=== PATIENT | female | born 1995 | race Caucasian/White ===

== ENCOUNTER 2017-10-11 17:57 | Emergency (ER) | payer OTHER, SELFPAY ==
[2017-10-11 17:58] VITALS: BP 135/71; PULSE 106; RESP 18; TEMP 36.1; O2SAT 100; BMI 18.7
[2017-10-11 19:42] LABS: Mucous, Urine 0 SEEN /hpf (<or=2+)
[2017-10-11 19:44] LABS: Color, Urine Yellow (Yellow); Glucose, Dipstick Normal (Normal); Ketone-Dipstick Negative (Negative); Leukocyte Esterase-Dipstick 500 /ul (Negative); Nitrite-Dipstick Positive (Negative); Occult Blood-Urine 250 /ul (Negative); Protein-Dipstick 100 mg/dl (Negative); Specific Gravity, Urine 1.015 (1.002-1.030); Urine Bilirubin Dipstick Negative (Negative); Urine Clarity Sl. Cloudy (Clear); Urine Urobilinogen Normal (Normal)
[2017-10-11 19:51] LABS: White Blood Cells 50-100 SEEN /hpf (0-5)
[2017-10-11 19:53] LABS: Bacteria 1+ /hpf (None Seen); Red Blood Cells-Urine 25-50 SEEN /hpf (0-5); Squamous Epithelial Cells - UA 0-5 SEEN /hpf (5-10)
--- NOTE | 2017-10-11 19:58 | ED.VISSUMM ---
- ER Visit Summary Date of Service: 10/11/17 Chief Complaint: [Dysuria] History of Present Illness: The patient is a 22 F [patient describes some lower abdominal pressure. Patient does not believe that she is she had an IUD placed September 23. Patient's last menstrual period was on September 19.] presents to the emergency department with complaint of dysuria, frequency, and urgency. Patient states her symptoms started about 5 or 6 days ago. Patient denies any fever or vomiting. Physical Examination: [HEENT-PERRLA, EOMI. Cranial nerves II through XII grossly intact. TMs clear. Mucous membranes moist. No adenopathy. Cardiovascular-regular rate and rhythm without murmur or ectopy Lungs-clear to auscultation, chest wall stable without crepitus or subcu emphysema Abdomen-normoactive bowel sounds, soft, nontender, no rebound or rigidity, no peritoneal signs. Extremities-intact ?4, normal range of motion, normal pulses, atraumatic] Test Results: [Urinalysis positive for nitrites, leukocyte esterase, 50-100 WBCs, 25-50 RBCs, and +1 bacteria. Serum hCG pending ordered by nursing staff.] Emergency Department Course and Treatment: [She was started on Cipro and will be given a prescription for Pyridium as well given that patient claiming sulfa allergy.] Treatment Plan: [And will be treated with Cipro and Pyridium and advised to follow-up with primary care physician within the next 5-7 days.] Disposition: [Discharged to home in stable condition. Patient advised to return if fever, vomiting, severe abdomen or back pain, or condition should worsen in any way.] Impression: [Urinary tract infection] This note was generated with [employer] dictation software. It may contain incorrect words, spelling, and punctuation that were not noted in review of the chart prior to signing ED Disposition - Plan for ED Patient: Chief Complaint: Complaint Referrals: Carmelita Vargas MD [Primary Care Provider] -
--- NOTE | 2017-10-11 20:00 | ED.DEP ---
ED Disposition - Plan for ED Patient: Chief Complaint: Complaint Instructions: ED UTI Cystitis Female Prescriptions: Phenazopyridine HCl [Pyridium] 200 mg PO BID PRN PRN #10 tab PRN Reason: Pain Ciprofloxacin [Cipro] 500 mg PO BID #14 tab Referrals: Carmelita Vargas MD [Primary Care Provider] - 5-7 Days
[2017-10-11 20:20] LABS: Pregnancy, Serum, hCG Quali. NEGATIVE Negative (0-9 Nonpreg)
[2017-10-11] MEDS: Ciprofloxacin 500 MG Tablet PO (20:31)
[2017-10-11 20:32] VITALS: PULSE 90; RESP 16; O2SAT 100
== END 2017-10-11 20:33 | disposition home or self-care (01) ==
PROVIDERS: Emergency Provider Emergency Medicine; Family Provider Pediatrics; PCP Pediatrics
DX: N39.0 Urinary tract infection, site not specified (principal); G40.909 Epilepsy, unspecified, not intractable, without status epilepticus; Z79.899 Other long term (current) drug therapy
CPT/HCPCS: 36415; 81001; 84703; 87086; 87088; 87186; 99283

== ENCOUNTER → 2017-12-03 08:25 | Outpatient (CLI) | payer OTHER, SELFPAY ==
--- NOTE | 2017-12-03 08:25 | DT_ITS ---
This patient was seen during an EMR downtime November 29, 2017 - December 06, 2017. This patient may have a combination of paper and electronic documentation or all paper documentation. All documentation is viewable within the e-chart portion of [facility] for each patient visit.
[2017-12-03 12:15] LABS: Basophil% 0.4 % (0-1); Eosinophils% 1.6 % (0-5); Hematocrit 4.7 % (37-47); Hemoglobin 13.4 g/dl (12.0-15.0); Lymphocyte % 24.2 % (19-41); Mean Corp Hgb Conc 32.9 g/gl (32-36); Mean Corpuscular Hgb 28.5 pg (27.0-32.0); Mean Corpuscular Volume 86.6 fL (81-99); Mean Platelet Vol. 11.7 fl (6.2-12.0); Monocyte% 9.6 % (0-10); Neutrophil % 63.8 % (47-70); POSITIVE COUNT NO; POSITIVE DIFFERENTIAL NO; POSITIVE MORPHOLOGY NO; Platelet Count 205 K/mm3 (150-450); RBC Distribution Width SD 37.7 fl (35.1-43.9)
[2017-12-03 12:16] LABS: Absolute Lymphocyte Count 1.21 X10^3/ul (0.83-4.51); Absolute Neutrophil Count 3.2 X10^3/uL (2.0-7.7); Basophil# 0.02 X10^3/uL; Eosinophil# 0.08 X10^3/uL; Lymphocyte # 1.21 X10^3/ul (4.0); Monocyte# 0.48 X10^3/uL; Neutrophil # 3.18 X10^3/uL (2.7-7.7)
[2017-12-03 14:50] LABS: ALB/GLOB Ratio 1.1 RATIO (0.9-2.4); AST(SGOT) 17 U/L (15-37); Alanine Aminotransfer ALT/SGPT 28 U/L (13-56); Albumin, Serum 3.9 g/dL (3.2-5.0); Alkaline Phosphatase 57 U/L (45-117); Anion Gap 8 (5-15); BUN 18 mg/dL (7-18); BUN/Creat Ratio 23.1 RATIO (10-20); Calcium,Total 8.4 mg/dL (8.5-10.1); Chloride 110 mmol/L (98-107); Creatinine, Serum 0.78 mg/dL (0.55-1.02); EST Glomerular Filtration Rate 98 mL/min (>60); Est Glom Filt Rate - Afr Amer 119 mL/min (>60); Globulin 3.6 g/dL (2.2-4.2); Glucose 74 mg/dL (74-106); Potassium 4.2 mmol/L (3.5-5.1); Protein, Total 7.5 g/dL (6.4-8.2); Sodium Level 144 mmol/L (136-145)
[2017-12-11 14:14] LABS: KEPPRA (LEVETIRACETAM) 45.1 ug/mL (10.0-40.0)
== END ==
PROVIDERS: Family Provider Pediatrics; PCP Pediatrics; Visit Provider Psychiatry & Neurology Neurology
DX: G40.909 Epilepsy, unspecified, not intractable, without status epilepticus (principal)
CPT/HCPCS: 36415; 80053; 80177; 82542; 85025

== ENCOUNTER → 2021-04-01 12:31 | Outpatient (CLI) | payer OTHER, SELFPAY ==
[2021-04-01 13:42] LABS: Hemoglobin 12.8 g/dL (12.0-15.0); Mean Corp Hgb Conc 32.8 g/dL (32-36); Mean Corpuscular Volume 88.2 fL (81-99); Mean Platelet Vol. 11.4 fl (6.2-12.0); Platelet Count 176 K/mm3 (150-450); RBC Distribution Width CV 12.1 % (11.6-14.6); RBC Distribution Width SD 38.9 fl (35.1-43.9); Red Blood Count 4.42 M/mm3 (4.2-5.4)
[2021-04-01 14:06] LABS: Internal QC Validated? YES +Cl - CLEAR BKGD
[2021-04-01 14:08] LABS: Pregnancy, Serum, hCG Quali. POSITIVE Negative
[2021-04-01 14:16] LABS: ALB/GLOB Ratio 1.1 RATIO (0.9-2.4); AST(SGOT) 14 U/L (15-37); Alanine Aminotransfer ALT/SGPT 20 U/L (13-56); Albumin, Serum 3.8 g/dL (3.2-5.0); Alkaline Phosphatase 36 U/L (45-117); Anion Gap 8 (5-15); BUN 9 mg/dL (7-18); BUN/Creat Ratio 17.3 RATIO (10-20); Calcium,Total 8.9 mg/dL (8.5-10.1); Chloride 102 mmol/L (98-107); Creatinine, Serum 0.52 mg/dL (0.55-1.02); EST Glomerular Filtration Rate 151 mL/min (>60); Est Glom Filt Rate - Afr Amer 183 mL/min (>60); Globulin 3.5 g/dL (2.2-4.2); Glucose 89 mg/dL (74-106); Potassium 4.1 mmol/L (3.5-5.1); Protein, Total 7.3 g/dL (6.4-8.2); Sodium Level 137 mmol/L (136-145); T4 Free Direct 0.99 ng/dL (0.76-1.46); Thyroid Stim Hormone (TSH) 0.55 uIU/mL (0.358-3.74)
[2021-04-06 23:18] LABS: KEPPRA (LEVETIRACETAM) 14.1 ug/mL (10.0-40.0)
== END ==
LOC: LAB 12:33
PROVIDERS: PCP Internal Medicine; Referring Provider Internal Medicine; Visit Provider Internal Medicine
DX: R53.83 Other fatigue (principal); G40.909 Epilepsy, unspecified, not intractable, without status epilepticus; Z79.899 Other long term (current) drug therapy
CPT/HCPCS: 36415; 80053; 80177; 82306; 84439; 84443; 84703; 85027

== ENCOUNTER → 2021-04-11 18:24 | Outpatient (CLI) | payer OTHER, SELFPAY ==
--- NOTE | 2021-04-11 18:24 | US_ITS ---
STUDY: FIRST TRIMESTER OBSTETRICAL ULTRASOUND REASON FOR EXAM: Female, 25 years old dating/viability LMP: 01/31/2021. TECHNIQUE: Transvaginal TECHNICAL QUALITY: Adequate. PRIOR ULTRASOUND: None. FINDINGS: There is visualization of a single gestational sac in a normal intrauterine position. The mean sac diameter (MSD) measures 4.81 cm, indicating an estimated gestational age (EGA) of 10 weeks, 8 days. The gestational sac shape is within normal limits. There is a visualized yolk sac. The yolk sac measures 5.4 mm. The placenta is non-visualized. There is visualization of a live embryo. The crown-rump length (CRL) measures 3.4 cm, indicating an estimated gestational age (EGA) of 9 weeks, 6 days. There is demonstrated cardiac activity with a heart rate of 177 bpm. The estimated gestation age (EGA) by LMP is 10 weeks, 0 days. The estimated date of delivery (DIOGENES) by LMP is 11/07/2021. The estimated gestation age (EGA) by US is 10 weeks, 1 days. The estimated date of delivery (DIOGENES) by US is 11/06/2021. The uterus measures 9.5 cm x 6.2 cm x 6.8 cm. There is no demonstrated uterine fibroid. The cervix is closed. The right ovary measures 3.2 cm x 3.3 cm x 3 cm.. There is no right ovarian cyst. There is no visualized right adnexal mass or complex lesion. The left ovary measures 3.6 cm x 3.7 cm x 2.5 cm. There is a 5.2 cm x 2.6 cm x 4.2 cm solid nodule in the left adnexa. There is some posterior acoustical shadowing. A dermoid cyst should be ruled out. There is no fluid in the cul de sac. US/Transvaginal w/Preg US IMPRESSION: Single live gestation with a mean gestational age of 10 weeks and 1 day. Findings suggestive of a 5.2 cm x 2.6 x 4.2 cm left adnexal dermoid. Electronically Signed: Jakub Mcmahon MD at 13:13 EDT , Service support ,
== END ==
LOC: US 18:24
PROVIDERS: PCP Internal Medicine; Visit Provider Obstetrics & Gynecology
DX: Z34.90 Encounter for supervision of normal pregnancy, unspecified, unspecified trimester (principal)
CPT/HCPCS: 76817

== ENCOUNTER → 2021-04-16 12:41 | Outpatient (CLI) | payer OTHER, SELFPAY ==
[2021-04-16 13:12] LABS: Absolute Lymphocyte Count 0.89 X10^3/uL (0.83-4.51); Absolute Neutrophil Count 3.9 X10^3/uL (2.0-7.7); Basophil# 0.02 X10^3/uL; Basophil% 0.4 % (0-1); Eosinophil# 0.03 X10^3/uL; Eosinophils% 0.6 % (0-5); Hematocrit 37.8 % (37-47); Hemoglobin 13.1 g/dL (12.0-15.0); Lymphocyte # 0.89 X10^3/ul (0.83-4.51); Lymphocyte % 17.3 % (19-41); Mean Corp Hgb Conc 34.7 g/dL (32-36); Mean Corpuscular Hgb 29.9 pg (27.0-32.0); Mean Corpuscular Volume 86.3 fL (81-99); Monocyte# 0.32 X10^3/uL; Monocyte% 6.2 % (0-10); NRBC Flagged by Analyzer 0 % (0-5); Neutrophil # 3.86 X10^3/uL (2.7-7.7); Neutrophil % 74.9 % (47-70); Platelet Count 176 K/mm3 (150-450); RBC Distribution Width CV 12.3 % (11.6-14.6); RBC Distribution Width SD 39.2 fl (35.1-43.9); Red Blood Count 4.38 M/mm3 (4.2-5.4); White Blood Count 5.2 K/mm3 (4.4-11.0)
[2021-04-16 13:50] LABS: NATERA MAILED SPECIMEN
[2021-04-16 14:27] LABS: HIV - WCH Non-Reactive (Nonreactive); Hepatitis B Surface Antigen Non-Reactive (Nonreactive); Hepatitis C Antibody Non-Reactive (Nonreactive); Rubella IgG Reactive (Nonreactive); Syphilis Antibodies Non-reactive
[2021-04-16 16:58] LABS: Amphetamine Urine VISTA NEGATIVE (<1000 ng/mL); Barbiturate Urine VISTA NEGATIVE (< 200 ng/mL); Benzodiazepine Urine VISTA NEGATIVE (< 200 ng/mL); Cocaine Urine VISTA NEGATIVE (< 300 ng/mL); Ecstacy Urine VISTA NEGATIVE (< 500 ng/mL); Methadone Urine VISTA NEGATIVE (< 300 ng/mL); PCP Urine VISTA NEGATIVE (< 25 ng/mL); THC Urine VISTA NEGATIVE (< 50 ng/mL); Vista UDS pH Range 6
[2021-04-19 09:08] LABS: Chlamydia By Nucleic Acid AMP Negative (Negative)
[2021-04-19 13:52] LABS: Gonococcus By Nucleic Acid AMP Negative (Negative)
[2021-04-21 17:21] LABS: HPV Reflexed? NOT INDICATED
== END ==
PROVIDERS: PCP Internal Medicine; Referring Provider Obstetrics & Gynecology; Visit Provider Obstetrics & Gynecology
DX: Z34.81 Encounter for supervision of other normal pregnancy, first trimester (principal); Z31.430 Encounter of female for testing for genetic disease carrier status for procreative management; Z12.4 Encounter for screening for malignant neoplasm of cervix
CPT/HCPCS: 36415; 80307; 85025; 86703; 86762; 86780; 86803; 86850; 86900; 86901; 87086; 87088; 87340; 87491; 87591; 88175; G0145

== ENCOUNTER → 2021-04-23 16:23 | Outpatient (CLI) | payer OTHER, SELFPAY ==
[2021-04-23 17:29] LABS: NATERA MAILED SPECIMEN
== END ==
LOC: LAB 16:26
PROVIDERS: PCP Internal Medicine; Visit Provider Obstetrics & Gynecology
DX: Z34.81 Encounter for supervision of other normal pregnancy, first trimester (principal); Z31.430 Encounter of female for testing for genetic disease carrier status for procreative management
CPT/HCPCS: 36415

== ENCOUNTER → 2021-06-12 13:41 | Outpatient (CLI) | payer OTHER, SELFPAY | PROVIDERS: PCP Internal Medicine; Referring Provider Nurse Practitioner Women's Health; Visit Provider Nurse Practitioner Women's Health | DX: O09.90 Supervision of high risk pregnancy, unspecified, unspecified trimester (principal); Z3A.00 Weeks of gestation of pregnancy not specified | CPT/HCPCS: 36415 ==

== ENCOUNTER → 2021-06-19 13:01 | Outpatient (CLI) | payer OTHER, SELFPAY ==
--- NOTE | 2021-06-19 13:06 | US_ITS ---
STUDY: SECOND AND THIRD TRIMESTER OBSTETRICAL ULTRASOUND REASON FOR EXAM: Female, 25 years old anatomy LMP: 01/31/2021 TECHNIQUE: Transabdominal and Transvaginal TECHNICAL QUALITY: Adequate. PRIOR ULTRASOUND: 04/11/2021 FINDINGS: There is a single intrauterine fetus. The fetus is in a cephalic presentation. There is demonstrated cardiac activity with a heart rate of 147 bpm. There is a normal amniotic fluid volume. The largest amniotic fluid pocket measures 5.1 cm. The amniotic fluid index (HARJEET) is cm. The placenta is fundal in location. There are Grade 1 placental changes. The cervix measures 3.8 cm in length. The adnexal regions are not visualized. BIOMETRY: BPD: 4.6 cm: 20 weeks, 0 days HC: 17.2 cm: 19 weeks, 5 days AC: 15.5 cm: 20 weeks, 4 days FL: 3.1 cm: 19 weeks, 4 days CI: 80.57% FL/BPD: 66.90% FL/HC: 18.04% FL/AC: 20.01% HC/AC: 1.11 age by current US: 19 weeks, 6 days. DIOGENES by current US: 11/07/2021. Estimated weight: 338 grams, +/- 51 grams, 64 %. Age by LMP: 19 weeks, 6 days. DIOGENES by LMP: 11/07/2021. ANATOMY: Gender: Male Cranium: Normal lateral ventricles. Normal choroid plexus. Normal cerebellum. Normal cisterna magna. Normal face, nose and lips. Chest: Normal 4-chamber heart. Abdomen/Pelvis: Normal diaphragm. Hyperechoic area within the stomach. Normal abdominal wall. Normal cord insertion. Normal 3 vessel cord. Normal kidneys. Normal bladder. Spine: Normal cervical spine. Normal thoracic spine. Normal lumbar spine. Normal sacrum. Extremities: Normal bilateral upper extremities. Normal bilateral lower extremities. US/OB Anatomy Scan IMPRESSION: Living intrauterine of 19 weeks 6 days as described above. Electronically Signed: Magdy Balbuena MD at 10:53 EST Tel , Service support , Refer to OB ultrasound. Electronically Signed: Magdy Balbuena MD at 10:52 EST Tel , Service support ,
== END ==
LOC: OPUS 13:02
PROVIDERS: PCP Internal Medicine; Referring Provider Obstetrics & Gynecology; Visit Provider Obstetrics & Gynecology
DX: O09.92 Supervision of high risk pregnancy, unspecified, second trimester (principal); Z3A.19 19 weeks gestation of pregnancy
CPT/HCPCS: 76805; 76817

== ENCOUNTER 2021-08-04 14:56 | Outpatient (CLI) | payer OTHER, SELFPAY ==
--- NOTE | 2021-08-04 14:59 | US_ITS ---
STUDY: SECOND AND THIRD TRIMESTER OBSTETRICAL ULTRASOUND - LIMITED REASON FOR EXAM: Female, 26 years old. growth. LMP: 01/31/2021 PRIOR ULTRASOUND: 04/11/2021 and 06/19/2021 TECHNIQUE: Transabdominal TECHNICAL QUALITY: Adequate. FINDINGS: There is a single intrauterine fetus. The fetus is in a cephalic presentation. There is demonstrated cardiac activity with a heart rate of 120 bpm. There is a normal amniotic fluid volume. The largest amniotic fluid pocket measures 2.7 cm. The placenta is posterior in location and is not low lying. There are Grade 0 placental changes. The cervix is obscured BIOMETRY: BPD: 6.52 cm: 26 weeks, 2 days HC: 4.07 cm: 26 weeks, 0 days AC: 21.78 cm: 26 weeks, 1 days FL: 4.77 cm: 25 weeks, 6 days Age by LMP: 26 weeks, 3 days. DIOGENES by LMP: 11/07/2021. age by initial US: 26 weeks, 4 days. DIOGENES by initial US: 11/06/2021. age by current US: 25 weeks, 6 days. DIOGENES by current US: 11/11/2021. Estimated weight: 906 grams, +/- 136 grams, 30 percentile. Gender: Indeterminant Anatomy was not evaluated. However echogenic focus is again seen in the region of the stomach which was present on the anatomy ultrasound carotid 06/19/2022. US/OB Limited With Biometrics IMPRESSION: 1. Single live intrauterine 25 weeks, 6 days. DIOGENES is 11/11/2021. There is adequate interval growth since the initial ultrasound. 2. EFW of 906 g. 3. Adequate amniotic fluid. 4. Posterior grade 0 placenta. 5. Persistent echogenic focus in the stomach. This is of unknown etiology and report. Electronically Signed: Scar Granados DO at 16:22 EST ,
== END 2021-08-04 23:59 | disposition home or self-care (01) ==
LOC: OPUS 14:57 → US 14:58
PROVIDERS: PCP Internal Medicine; Referring Provider Obstetrics & Gynecology; Visit Provider Obstetrics & Gynecology
DX: O99.352 Diseases of the nervous system complicating pregnancy, second trimester (principal); G40.909 Epilepsy, unspecified, not intractable, without status epilepticus; Z3A.25 25 weeks gestation of pregnancy
CPT/HCPCS: 76816

== ENCOUNTER 2021-08-07 12:35 | Outpatient (CLI) | payer OTHER, SELFPAY ==
[2021-08-07 13:55] LABS: Absolute Lymphocyte Count 0.95 X10^3/uL (0.83-4.51); Absolute Neutrophil Count 5.3 X10^3/uL (2.0-7.7); Basophil# 0.02 X10^3/uL; Basophil% 0.3 % (0-1); Eosinophil# 0.04 X10^3/uL; Eosinophils% 0.6 % (0-5); Hematocrit 33.4 % (37-47); Hemoglobin 11.2 g/dL (12.0-15.0); Lymphocyte # 0.95 X10^3/ul (0.83-4.51); Lymphocyte % 13.9 % (19-41); Mean Corp Hgb Conc 33.5 g/dL (32-36); Mean Corpuscular Hgb 30.5 pg (27.0-32.0); Mean Platelet Vol. 12.2 fl (6.2-12.0); Monocyte# 0.45 X10^3/uL; Monocyte% 6.6 % (0-10); NRBC Flagged by Analyzer 0 % (0-5); Neutrophil # 5.32 X10^3/uL (2.7-7.7); Neutrophil % 77.7 % (47-70); Platelet Count 153 K/mm3 (150-450); RBC Distribution Width SD 40.2 fl (35.1-43.9); Red Blood Count 3.67 M/mm3 (4.2-5.4); White Blood Count 6.8 K/mm3 (4.4-11.0)
[2021-08-07 14:13] LABS: Glucose Challenge Gest 1H 50g 95 mg/dL (70-140)
== END 2021-08-07 23:59 | disposition home or self-care (01) ==
PROVIDERS: PCP Internal Medicine; Referring Provider Obstetrics & Gynecology; Visit Provider Obstetrics & Gynecology
DX: O09.90 Supervision of high risk pregnancy, unspecified, unspecified trimester (principal); Z3A.00 Weeks of gestation of pregnancy not specified
CPT/HCPCS: 36415; 82950; 85025

== ENCOUNTER 2021-09-15 16:32 | Outpatient (CLI) | payer OTHER, SELFPAY ==
--- NOTE | 2021-09-15 16:49 | US_ITS ---
STUDY: SECOND AND THIRD TRIMESTER OBSTETRICAL ULTRASOUND - LIMITED REASON FOR EXAM: Female, 26 years old. Growth. LMP: 01/31/2021 PRIOR ULTRASOUND: 08/04/2021, 06/19/2021 and 04/11/2021 TECHNIQUE: Transabdominal TECHNICAL QUALITY: Adequate. FINDINGS: There is a single intrauterine fetus. The fetus is in a cephalic presentation. There is demonstrated cardiac activity with a heart rate of 153 bpm. There is a normal amniotic fluid volume. The largest amniotic fluid pocket measures 4.74 cm. The amniotic fluid index (HARJEET) is 10.5 to cm. The placenta is posterior in location and is not low lying. There are Grade 1 placental changes. The cervix measures 3.3 cm cm in length. BIOMETRY: BPD: 7.77 cm: 31 weeks, 1 days HC: 28.73 cm: 31 weeks, 4 days AC: 28.03 cm: 32 weeks, 0 days FL: 5.9 cm: 30 weeks, 5 days Age by LMP: 32 weeks, 3 days. DIOGENES by LMP: 11/07/2021. age by prior US: 32 weeks, 4 days. DIOGENES by prior US: 11/06/2021. age by current US: 31 weeks, 0 days. DIOGENES by current US: 11/17/2021. Estimated weight: 1806 grams, +/- 271 grams, 19 percentile. Gender: Indeterminant US/OB Limited With Biometrics IMPRESSION: 1. Single live intrauterine of 31 weeks, 0 days. DIOGENES is 11/17/2021. This is 11 days behind expected gestational age by initial ultrasound. 2. EFW of 1806 g. This is at the 19th percentile. 3. HARJEET of 10.52 cm. 4. Posterior grade 1 placenta. 5. VERTEX presentation. Electronically Signed: Scar Granados DO at 23:46 EDT ,
== END 2021-09-15 23:59 | disposition home or self-care (01) ==
PROVIDERS: PCP Internal Medicine; Referring Provider Nurse Practitioner Women's Health; Visit Provider Nurse Practitioner Women's Health
DX: Z34.93 Encounter for supervision of normal pregnancy, unspecified, third trimester (principal); Z86.16 Personal history of COVID-19
CPT/HCPCS: 76816

== ENCOUNTER 2021-10-10 17:25 | Outpatient (CLI) | payer OTHER, SELFPAY | END 2021-10-10 23:59 | disposition home or self-care (01) | PROVIDERS: PCP Internal Medicine; Visit Provider Obstetrics & Gynecology | DX: O09.00 Supervision of pregnancy with history of infertility, unspecified trimester (principal); Z3A.00 Weeks of gestation of pregnancy not specified | CPT/HCPCS: 87081 ==

== ENCOUNTER 2021-10-16 17:50 | Outpatient (CLI) | payer OTHER, SELFPAY ==
[2021-10-16 18:24] VITALS: PULSE 87; O2SAT 97
[2021-10-16] MEDS: Lactated Ringers 1,000 ML 999 ML IV ×2 (18:35→19:36)
[2021-10-16 18:45] VITALS: BP 131/72; PULSE 80; BMI 23.7
--- NOTE | 2021-10-16 19:25 | OB.TRI.NOTE ---
HPI - General HPI Narrative JASMEET PATEL, is a 26 F who presents to labor and delivery for assessment and monitoring due to recent finding on ultrasound of HARJEET measuring 5.3 cm. The patient denies leaking fluid or contractions. Ultrasound did show a distended bladder and per the tech there were multiple loops of umbilical cord present within a large pocket of fluid. The patient denies any decreased movement. She is receiving weekly nonstress tests and a 36-week ultrasound for growth due to a history of epilepsy on Keppra. Maternal Data Information DIOGENES Calculator Estimated Delivery Date Method Current WG Current Estimate 11/07/21 LMP (Certain) 37w 1d PFSH PFSH Medical History Abnormal ultrasound Epilepsy Home Medications multivitamin no.47-iron fum 27 mg-folate no.1 1 mg-dha 300 mg capsule 1 cap PO DAILY 04/15/21 [History Last Taken 10/16/21 12:00 1 tab] aspirin 81 mg tablet,delayed release 81 mg PO DAILY 08/07/21 [History Last Taken 10/16/21 12:00 1 tab] levetiracetam 750 mg tablet,extended release 24 hr 2,250 mg PO QHS tab 08/29/21 [History Last Taken 10/15/21 22:30 2250 mg] Allergy/AdvReac Type Severity Reaction Status Date / Time Sulfa (Sulfonamide Allergy Unknown Verified 10/17/21 13:39 Antibiotics) Social History household members: significant other current occupational status: employed pets and animals: Yes Smoking Status: Never smoker second hand exposure: Yes alcohol intake: current alcohol intake frequency: a few times a month details: not while substance use type: does not use seatbelt use: always do you feel safe at home: Yes additional social history: - Dori ([place] age 12) History 1 Elective abortions Hx Para Spontaneous abortions Hx # Term Pregnancies Ectopic pregnancies Hx # Pregnancies Multiple births # of living children Visit Details Expected Delivery Route/Plan Labor Preferences- CB/BF classes: yes labor support person: Dori labor intervention preferences: [] pain management options preferred: epidural cut cord/dad catch: yes : yes PP control planned: IUD discussed possible routes of delivery and associated risks: [] special requests: [] Plans Covid status: counseled regarding risk of covid in vs vaccination and declined vaccination Flu vaccine: declined Tdap vaccine: given Rhogam: NA LARC form signed: yes Problem list reviewed and updated with the most current plan of care details and appropriate orders placed. Relevant counseling for the gestational age provided. Continue routine care and follow up unless otherwise noted in visit notes/problem list details OB Flowsheet Initial Weight: 104 lb Date <del>?</del> EGA Weight BP Urine Prot <del>?</del> Glucose FHR FuHt Pres Dilation <del>?</del> Effaced St Visit Note 04/16/21 <del>?</del> 10w 5d 104 lb (+0 oz) 102/62 <del>?</del> 160 <del>?</del> SM- CRL cons with LMP 05/16/21 <del>?</del> 15w 0d 110 lb 6 oz (+6 lb 6 oz) 120/60 Negative <del>?</del> Negative 161 <del>?</del> JV- no lof, vaginal bleeding, or cramping. Taking Keppra and dose was recently increased. anatomy scan to be done at [facility] due to insurance issues. 06/12/21 <del>?</del> 18w 6d 112 lb 2 oz (+8 lb 2 oz) 104/60 Negative <del>?</del> Negative 155 <del>?</del> MH-No Vb, LOF. Anatomy US 06/09. AFP today -No Vb, LOF. Anatomy US 06/19. AFP today 07/11/21 <del>?</del> 23w 0d 121 lb 8 oz (+17 lb 8 oz) 120/70 Negative <del>?</del> Negative 145 23 <del>?</del> SM- no vb lof good fm no reular ctx 08/07/21 <del>?</del> 26w 6d 123 lb 2 oz (+19 lb 2 oz) 126/60 Negative <del>?</del> Negative 151 26 <del>?</del> MH-No Vb, LOF. Good FM. Has not scheduled with MFM yet concerning echogenic focus of 's stomach. Phone number given to call. 28 wk labs, tdap and larc 08/29/21 <del>?</del> 30w 0d 121 lb 6 oz (+17 lb 6 oz) 124/60 Negative <del>?</del> Negative 140 30 <del>?</del> JV- pt's neurologist increased keppra to three times a day. start NSTs at 32 weeks twice weekly. 09/12/21 <del>?</del> 32w 0d 122 lb (+18 lb) 132/75 Negative <del>?</del> Negative 140 32 <del>?</del> SM- no vb lof good fm no regular ctx 09/26/21 <del>?</del> 34w 0d 124 lb 2 oz (+20 lb 2 oz) 124/80 Negative <del>?</del> Negative 130 <del>?</del> JV- nst reactive today. doing well with current dose of seizure meds 09/29/21 <del>?</del> 34w 3d 122 lb 6 oz (+18 lb 6 oz) 109/68 <del>?</del> 130 <del>?</del> MH-NST only reactive 10/02/21 <del>?</del> 34w 6d 123/74 <del>?</del> 140 <del>?</del> SM- no vb lof good fm no regular ctx 10/07/21 <del>?</del> 35w 4d 124 lb (+20 lb) 112/80 Negative <del>?</del> Negative 120 <del>?</del> MH-NST only reactive 10/10/21 <del>?</del> 36w 0d 123 lb 6 oz (+19 lb 6 oz) 104/68 Negative <del>?</del> Negative 130 <del>?</del> SM- no vb lof good fm no regular ctx gbs done 10/14/21 <del>?</del> 36w 4d 126 lb 2 oz (+22 lb 2 oz) 120/76 Negative <del>?</del> Negative 140 <del>?</del> MH-NST only reactive 10/16/21 <del>?</del> 36w 6d 125 lb 10.616 oz (+21 lb 10.616 oz) 131/72 <del>?</del> <del>?</del> 10/17/21 <del>?</del> 37w 0d 127 lb 6 oz (+23 lb 6 oz) 120/60 Negative <del>?</del> Negative 120 <del>?</del> JV- HARJEET last night at [facility] radiology HARJEET was noted to be 5.3, however, badder was distended. She was given IV fluids and repeat today was 11 cm with largest pocket 6.3 cm. NST today and twice weekly with HARJEET to proceed or follow NST. if HARJEET lower than 5 will plan induction ROS Constitutional Constitutional: Reports systems reviewed and no addt'l complaints, except as documented Gastrointestinal Gastrointestinal: Denies bloating, constipation, cramping, diarrhea, nausea or vomiting Genitourinary Genitourinary: Reports other Details: Denies vaginal odor, vaginal bleeding, or vaginal discharge ; Denies difficulty urinating or flank pain Physical Exam HEENT normocephalic Resp normal respiratory effort and normal air movement no CVA tenderness Extremity normal to inspection General Extremity: edema bilateral (trace ) NST FHR Rate Baby A Baseline: 140 Variability:: Moderate Accelerations:: 15 x 15 Decelerations:: None NST Reactive:: Yes FHR Category:: Category I Assessment & Plan (1) HARJEET (amniotic fluid index) borderline low: COMMENT: was 5.3 on 10/16, however bladder was full. pt was given fluids on L&D and NST reactive. rpt HARJEET next day 11 Continue monitoring HARJEET twice a week (2) COVID-19 affecting in second trimester: COMMENT: start aspirin and growth US at 32 and 36 weeks. Normal growth, baby on small side. (3) Abnormal ultrasound: COMMENT: echogenic foci of stomach seen initially, MFM consult declined due to insurance coverage. nipt low risk, fu us normal. (4) Supervision of high risk , antepartum: COMMENT: PRR DIOGENES: 11/07/21 rios Caballero Spouse: Dori (Dori age 12) (5) : QUALIFIERS: Weeks of gestation: 37 weeks Qualified Code(s): Z3A.37 - 37 weeks gestation of COMMENT: NIPT low risk, carrier testing neg; NEG AFP, GBS negative (6) Epilepsy: QUALIFIERS: Epilepsy type: unspecified Intractability: not intractable Status epilepticus: without status epilepticus Qualified Code(s): G40.909 - Epilepsy, unspecified, not intractable, without status epilepticus COMMENT: extra folic acid. dx 2013- Dr. Lorenzo Lucio currently on Keppra 750mg ER TID. -start twice weekly nst's 32 weeks. PLAN: Plan to fluid hydrate with 2 L of normal saline. If nonstress test is reactive will discharge patient to home for close follow-up early in the morning tomorrow for repeat HARJEET. If HARJEET is still 5 or below plan to induce labor. Charges/Coding Multi Select Codes Visit Charges Office Visit/Consults: 16138 OV L3 Est Urinary/Genital Urinary/Genital CPT Codes: 40181-52 non-stress test Interp
--- NOTE | 2021-10-18 09:25 | OB.TRI.HP_ITS ---
HPI - General HPI Narrative JASMEET PATEL, is a 26 F who presents to labor and delivery for assessment and monitoring due to recent finding on ultrasound of HARJEET measuring 5.3 cm. The patient denies leaking fluid or contractions. Ultrasound did show a distended bladder and per the tech there were multiple loops of umbilical cord pre sent within a large pocket of fluid. The patient denies any decreased movement. She is receiving weekly nonstress tests and a 36-week ultrasound for growth due to a history of epilepsy on Keppra. Maternal Data Information DIOGENES Calculator Estimated Delivery Date Method Current WG Current Estimate 11/07/21 LMP (Certain) 37w 1d PFSH PFSH Medical History Abnormal ultrasound Epilepsy Home Medications multivitamin no.47-iron fum 27 mg-folate no.1 1 mg-dha 300 mg capsule 1 cap PO DAILY 04/15/21 [History Last Taken 10/16/21 12:00 1 tab] aspirin 81 mg tablet,delayed release 81 mg PO DAILY 08/07/21 [History Last Taken 10/16/21 12:00 1 tab] levetiracetam 750 mg tablet,extended release 24 hr 2,250 mg PO QHS tab 08/29/21 [History Last Taken 10/15/21 22:30 2250 mg] Allergy/AdvReac Type Severity Reaction Status Date / Time Sulfa (Sulfonamide Allergy Unknown Verified 10/17/21 13:39 Antibiotics) Social History household members: significant other current occupational status: employed pets and animals: Yes Smoking Status: Never smoker second hand exposure: Yes alcohol intake: current alcohol intake frequency: a few times a month details: not while substance use type: does not use seatbelt use: always do you feel safe at home: Yes additional social history: - Dori ([place] age 12) History 1 Elective abortions Hx Para Spontaneous abortions Hx # Term Pregnancies Ectopic pregnancies Hx # Pregnancies Multiple births # of living children Visit Details Expected Delivery Route/Plan Labor Preferences- CB/BF classes: yes labor support person: Dori labor intervention preferences: [] pain management options preferred: epidural cut cord/dad catch: yes : yes PP control planned: IUD discussed possible routes of delivery and associated risks: [] special requests: [] Plans Covid status: counseled regarding risk of covid in vs vaccination and declined vaccination Flu vaccine: declined Tdap vaccine: given Rhogam: NA LARC form signed: yes Problem list reviewed and updated with the most current plan of care details and appropriate orders placed. Relevant counseling for the gestational age provided. Continue routine care and follow up unless otherwise noted in visit notes/problem list details OB Flowsheet Initial Weight: 104 lb Date -?-?-?-?-?-?-?-?-?-?-?-?- EGA Weight BP Urine Prot -?-?-?-?-?-?-?-?-?-?-?-?- Glucose FHR FuHt Pres Dilation -?-?-?-?-?-?-?-?-?-?-?-?- Effaced St Visit Note 04/16/21 -?-?-?-?-?-?-?-?-?-?-?-?- 10w 5d 104 lb (+0 oz) 102/62 -?-?-?-?-?-?-?-?-?-?-?-?- 160 -?-?-?-?-?-?-?-?-?-?-?-?- SM- CRL cons wit h LMP 05/16/21 -?-?-?-?-?-?-?-?-?-?-?-?- 15w 0d 110 lb 6 oz (+6 lb 6 oz) 120/60 Negative -?-?-?-?-?-?-?-?-?-?-?-?- Negative 161 -?-?-?-?-?-?-?-?-?-?-?-?- JV- no lof, vagi nal bleeding, or cramping. Taking Keppra and dose was recently increased. anatomy scan to be [facility] at [facility] due to insurance issues. 06/12/21 -?-?-?-?-?-?-?-?-?-?-?-?- 18w 6d 112 lb 2 oz (+8 lb 2 oz) 104/60 Negative -?-?-?-?-?-?-?-?-?-?-?-?- Negative 155 -?-?-?-?-?-?-?-?-?-?-?-?- -No Vb, LOF. A natomy US 06/09. AFP today -No Vb, LOF. Anatomy US . AFP today 07/11/21 -?-?-?-?-?-?-?-?-?-?-?-?- 23w 0d 121 lb 8 oz (+17 lb 8 oz) 120/70 Negative -?-?-?-?-?-?-?-?-?-?-?-?- Negative 145 23 -?-?-?-?-?-?-?-?-?-?-?-?- - no vb lof go od fm no reular ctx 08/07/21 -?-?-?-?-?-?-?-?-?-?-?-?- 26w 6d 123 lb 2 oz (+19 lb 2 oz) 126/60 Negative -?-?-?-?-?-?-?-?-?-?-?-?- Negative 151 26 -?-?-?-?-?-?-?-?-?-?-?-?- -No Vb, LOF. G ood FM. Has not scheduled with MFM yet concerning echogenic focus of infant's stomach. Phone number given to call. 28 wk labs, tdap and larc 08/29/21 -?-?-?-?-?-?-?-?-?-?-?-?- 30w 0d 121 lb 6 oz (+17 lb 6 oz) 124/60 Negative -?-?-?-?-?-?-?-?-?-?-?-?- Negative 140 30 -?-?-?-?-?-?-?-?-?-?-?-?- JV- pt's neurolo gist increased keppra to three times a day. start NSTs at 32 weeks twice weekly. 09/12/21 -?-?-?-?-?-?-?-?-?-?-?-?- 32w 0d 122 lb (+18 lb) 132/75 Negative -?-?-?-?-?-?-?-?-?-?-?-?- Negative 140 32 -?-?-?-?-?-?-?-?-?-?-?-?- SM- no vb lof go od fm no regular ctx 09/26/21 -?-?-?-?-?-?-?-?-?-?-?-?- 34w 0d 124 lb 2 oz (+20 lb 2 oz) 124/80 Negative -?-?-?-?-?-?-?-?-?-?-?-?- Negative 130 -?-?-?-?-?-?-?-?-?-?-?-?- JV- nst reactive today. doing well with current dose of seizure meds 09/29/21 -?-?-?-?-?-?-?-?-?-?-?-?- 34w 3d 122 lb 6 oz (+18 lb 6 oz) 109/68 -?-?-?-?-?-?-?-?-?-?-?-?- 130 -?-?-?-?-?-?-?-?-?-?-?-?- MH-NST only reac tive 10/02/21 -?-?-?-?-?-?-?-?-?-?-?-?- 34w 6d 123/74 -?-?-?-?-?-?-?-?-?-?-?-?- 140 -?-?-?-?-?-?-?-?-?-?-?-?- SM- no vb lof go od fm no regular ctx 10/07/21 -?-?-?-?-?-?-?-?-?-?-?-?- 35w 4d 124 lb (+20 lb) 112/80 Negative -?-?-?-?-?-?-?-?-?-?-?-?- Negative 120 -?-?-?-?-?-?-?-?-?-?-?-?- MH-NST only reac tive 10/10/21 -?-?-?-?-?-?-?-?-?-?-?-?- 36w 0d 123 lb 6 oz (+19 lb 6 oz) 104/68 Negative -?-?-?-?-?-?-?-?-?-?-?-?- Negative 130 -?-?-?-?-?-?-?-?-?-?-?-?- SM- no vb lof go od fm no regular ctx gbs done 10/14/21 -?-?-?-?-?-?-?-?-?-?-?-?- 36w 4d 126 lb 2 oz (+22 lb 2 oz) 120/76 Negative -?-?-?-?-?-?-?-?-?-?-?-?- Negative 140 -?-?-?-?-?-?-?-?-?-?-?-?- -NST only reac tive 10/16/21 -?-?-?-?-?-?-?-?-?-?-?-?- 36w 6d 125 lb 10.616 oz (+21 lb 10.616 oz) 131/72 -?-?-?-?-?-?-?-?-?-?-?-?- -?-?-?-?-?-?-?-?-?-?-?-?- 10/17/21 -?-?-?-?-?-?-?-?-?-?-?-?- 37w 0d 127 lb 6 oz (+23 lb 6 oz) 120/60 Negative -?-?-?-?-?-?-?-?-?-?-?-?- Negative 120 -?-?-?-?-?-?-?-?-?-?-?-?- JV- HARJEET last nig ht at [facility] radiology HARJEET was noted to be 5.3, however, badder was distended. She was given IV fluids and repeat today was 11 cm with largest pocket 6.3 cm. NST today and twice weekly with HARJEET to proceed or follow NST. if HARJEET lower than 5 will plan induction ROS Constitutional Constitutional: Reports systems reviewed and no addt'l complaints, except as documented Gastrointestinal Gastrointestinal: Denies bloating, constipation, cramping, diarrhea, nausea or vomiting Genitourinary Genitourinary: Reports other Details: Denies vaginal odor, vaginal bleeding, or vaginal discharge ; Denies difficulty urinating or flank pain Physical Exam HEENT normocephalic Resp normal respiratory effort and normal air movement no CVA tenderness Extremity normal to inspection General Extremity: edema bilateral (trace ) NST FHR Rate Baby A Baseline: 140 Variability:: Moderate Accelerations:: 15 x 15 Decelerations:: None NST Reactive:: Yes FHR Category:: Category I Assessment & Plan (1) HARJEET (amniotic fluid index) borderline low: COMMENT: was 5.3 on 10/16, however bladder was full. pt was given fluids on L&D and NST reactive. rpt HARJEET next day 11 Continue monitoring HARJEET twice a week (2) COVID-19 affecting in second trimester: COMMENT: start aspirin and growth US at 32 and 36 weeks. Normal growth, baby on small side. (3) Abnormal ultrasound: COMMENT: echogenic foci of stomach seen initially, MFM consult declined due to insurance coverage. nipt low risk, fu us normal. (4) Supervision of high risk , antepartum: COMMENT: PRR DIOGENES: 11/07/21 rios Caballero Spouse: Dori (Dori age 12) (5) : QUALIFIERS: Weeks of gestation: 37 weeks Qualified Code(s): Z3A.37 - 37 weeks gestation of COMMENT: NIPT low risk, carrier testing neg; NEG AFP, GBS negative (6) Epilepsy: QUALIFIERS: Epilepsy type: unspecified Intractability: not intractable Status epilepticus: without status epilepticus Qualified Code(s): G40.909 - Epilepsy, unspecified, not intractable, without status epilepticus COMMENT: extra folic acid. dx 2012- Dr. Lorenzo Lucio currently on Keppra 750mg ER TID. -start twice weekly nst's 32 weeks. PLAN: Plan to fluid hydrate with 2 L of normal saline. If nonstress test is reactive will discharge patient to home for close follow-up early in the morning tomorrow for repeat HARJEET. If HARJEET is still 5 or below plan to induce labor. Charges/Coding Multi Select Codes Visit Charges Office Visit/Consults: 10351 OV L3 Est Urinary/Genital Urinary/Genital CPT Codes: 94954-30 non-stress test Interp
== END 2021-10-16 20:52 | disposition home or self-care (01) ==
LOC: WPOUT 18:00 → WP 18:00
PROVIDERS: PCP Internal Medicine; Referring Provider Obstetrics & Gynecology; Visit Provider Obstetrics & Gynecology
DX: G40.909 Epilepsy, unspecified, not intractable, without status epilepticus (principal); O41.03X0 Oligohydramnios, third trimester, not applicable or unspecified; O99.353 Diseases of the nervous system complicating pregnancy, third trimester; O09.10 Supervision of pregnancy with history of ectopic pregnancy, unspecified trimester; Z3A.37 37 weeks gestation of pregnancy; Z79.82 Long term (current) use of aspirin
CPT/HCPCS: 96360; 96361; 59025; 59050; 99218; J7120; G0378

== ENCOUNTER → 2021-10-16 | Outpatient (CLI) | payer OTHER, SELFPAY ==
--- NOTE | 2021-10-16 16:40 | US_ITS ---
STUDY: SECOND AND THIRD TRIMESTER OBSTETRICAL ULTRASOUND - LIMITED REASON FOR EXAM: Female, 26 years old GROWTH @ 36 WKS LMP: Unknown. PRIOR ULTRASOUND: September 15, 2021 TECHNIQUE: Transabdominal TECHNICAL QUALITY: Adequate. FINDINGS: There is a single intrauterine fetus. The fetus is in a cephalic presentation. There is demonstrated cardiac activity with a heart rate of 151 bpm. There is decreased amniotic fluid volume consistent with oligohydramnios. The largest amniotic fluid pocket measures 2.7 cm. The amniotic fluid index (HARJEET) is 5.3 cm. The placenta is posterior in location and is not low lying. There are Grade 3 placental changes. The cervix measures 2.5 cm in length. BIOMETRY: BPD: 8.6 cm: 34 weeks, 3 days HC: 32.1 cm: 36 weeks, 1 days AC: 33.1 cm: 37 weeks, 0 days FL: 6.7 cm: 34 weeks, 2 days age by prior US: 35 weeks, 3 days. DIOGENES by prior US: November 17, 2021. age by current US: 35 weeks, 4 days. DIOGENES by current US: November 16, 2021. Estimated weight: 827 grams, +/- 424 grams, 33 percentile. Other: There is a 4.5 x 2.7 cm distention of the urinary bladder. US/OB Limited With Biometrics IMPRESSION: Single intrauterine gestation 35 weeks 4 days with estimated due date November 16, 2021. Oligohydramnios. HARJEET 5.3 cm. Electronically Signed: Beny Rosas MD at 8:50 EDT ,
== END | disposition home or self-care (01) ==
LOC: OPUS 16:34
PROVIDERS: PCP Internal Medicine; Visit Provider Nurse Practitioner Women's Health
DX: Z34.90 Encounter for supervision of normal pregnancy, unspecified, unspecified trimester (principal); Z3A.35 35 weeks gestation of pregnancy
CPT/HCPCS: 76816

== ENCOUNTER 2021-10-21 17:30 | Inpatient (IN) | payer OTHER, SELFPAY ==
[2021-10-21 17:51] VITALS: BMI 24.1
[2021-10-21 18:08] VITALS: BP 106/71; PULSE 69
[2021-10-21 18:21] LABS: Absolute Lymphocyte Count 1.14 X10^3/uL (0.83-4.51); Absolute Neutrophil Count 5.2 X10^3/uL (2.0-7.7); Basophil# 0.02 X10^3/uL; Basophil% 0.3 % (0-1); Eosinophil# 0.06 X10^3/uL; Eosinophils% 0.9 % (0-5); Hematocrit 35.4 % (37-47); Hemoglobin 11.3 g/dL (12.0-15.0); Lymphocyte # 1.14 X10^3/ul (0.83-4.51); Lymphocyte % 16.2 % (19-41); Mean Corp Hgb Conc 31.9 g/dL (32-36); Mean Corpuscular Hgb 28.2 pg (27.0-32.0); Mean Corpuscular Volume 88.3 fL (81-99); Mean Platelet Vol. 12.3 fl (6.2-12.0); Monocyte# 0.52 X10^3/uL; Monocyte% 7.4 % (0-10); NRBC Flagged by Analyzer 0 % (0-5); Neutrophil # 5.19 X10^3/uL (2.7-7.7); Neutrophil % 73.6 % (47-70); Platelet Count 123 K/mm3 (150-450); RBC Distribution Width CV 12.7 % (11.6-14.6); RBC Distribution Width SD 40.1 fl (35.1-43.9); Red Blood Count 4.01 M/mm3 (4.2-5.4)
[2021-10-21] MEDS: miSOPROStol 25 MCG TABLET PO ×2 (19:08→23:13)
[2021-10-21 19:18] VITALS: TEMP 36.7
[2021-10-21 19:34] VITALS: BP 119/69; PULSE 87
--- NOTE | 2021-10-21 19:42 | HP.PCM.OB_ITS ---
HPI - General General Date of Admission: 10/21/21 HPI Narrative JASMEET PATEL, is a 26y/o @ 37 weeks 4 days who presents to L&D as a direct admit from office today after found to have an HARJEET of 4. NST was inconclusive in the office. She denies lof, vaginal bleeding ,or dec fm. Maternal Data Information DIOGENES Calculator Estimated Delivery Date Method Current WG Current Estimate 11/07/21 LMP (Certain) 37w 4d PFSH PFSH Medical History (Updated 10/21/21 @ 18:27 by Rosey Amezquita) Abnormal ultrasound COVID-19 affecting in second trimester Epilepsy Oligohydramnios Home Medications multivitamin no.47-iron fum 27 mg-folate no.1 1 mg-dha 300 mg capsule 1 cap PO DAILY 04/15/21 [History Last Taken 10/21/21 12:00] aspirin 81 mg tablet,delayed release 81 mg PO DAILY 08/07/21 [History Last Taken 10/21/21 10:00] levetiracetam 750 mg tablet,extended release 24 hr 2,250 mg PO QHS tab 08/29/21 [History Last Taken 10/20/21 22:30] Allergy/AdvReac Type Severity Reaction Status Date / Time Sulfa (Sulfonamide Allergy Unknown Verified 10/21/21 15:15 Antibiotics) Social History household members: significant other current occupational status: employed pets and animals: Yes Smoking Status: Never smoker second hand exposure: Yes alcohol intake: current alcohol intake frequency: a few times a month details: not while substance use type: does not use seatbelt use: always do you feel safe at home: Yes additional social history: - Dori ([place] age 12) History 1 Elective abortions Hx Para 0 Spontaneous abortions Hx # Term Pregnancies Ectopic pregnancies Hx # Pregnancies Multiple births # of living children Visit Details Expected Delivery Route/Plan Labor Preferences- CB/BF classes: yes labor support person: Dori labor intervention preferences: [] pain management options preferred: epidural cut cord/dad catch: yes : yes PP control planned: IUD discussed possible routes of delivery and associated risks: [] special requests: [] Plans Covid status: counseled regarding risk of covid in vs vaccination and declined vaccination Flu vaccine: declined Tdap vaccine: given Rhogam: NA LARC form signed: yes Problem list reviewed and updated with the most current plan of care details and appropriate orders placed. Relevant counseling for the gestational age provided. Continue routine care and follow up unless otherwise noted in visit notes/problem list details OB Flowsheet Initial Weight: 104 lb Date -?-?-?-?-?-?-?-?-?-?-?-?- EGA Weight BP Urine Prot -?-?--?-?-?-?-?-?-?-?-?-?- Glucose FHR FuHt Pres Dilation -?-?-?-?-?-?-?-?--?-?-?-?- Effaced St Visit Note 04/16/21 -?-?-?-?-?-?-?-?-?-?-?-?- 10w 5d 104 lb (+0 oz) 102/62 -?-?-?-?-?-?-?-?-?-?-?-?- 160 -?-?-?-?-?-?-?-?-?-?-?-?- SM- CRL cons wit h LMP 05/16/21 -?-?-?-?-?-?-?-?-?-?-?-?- 15w 0d 110 lb 6 oz (+6 lb 6 oz) 120/60 Negative -?-?-?-?-?-?-?-?-?-?-?-?- Negative 161 -?-?-?-?-?-?-?-?-?-?-?-?- JV- no lof, vagi nal bleeding, or cramping. Taking Keppra and dose was recently increased. anatomy scan to be done at [facility] due to insurance issues. 06/12/21 -?-?-?-?-?-?-?-?-?-?-?-?- 18w 6d 112 lb 2 oz (+8 lb 2 oz) 104/60 Negative -?-?-?-?-?-?-?-?-?-?-?-?- Negative 155 -?-?-?-?-?-?-?-?-?-?-?-?- -No Vb, LOF. A natomy US 06/09. AFP today -No Vb, LOF. Anatomy US . AFP today 07/11/21 -?-?-?-?-?-?-?-?-?-?-?-?- 23w 0d 121 lb 8 oz (+17 lb 8 oz) 120/70 Negative -?-?-?-?-?-?-?-?-?-?-?-?- Negative 145 23 -?-?-?-?-?-?-?-?-?-?-?-?- - no vb lof go od fm no reular ctx 08/07/21 -?-?-?-?-?-?-?-?-?-?-?-?- 26w 6d 123 lb 2 oz (+19 lb 2 oz) 126/60 Negative -?-?-?-?-?-?-?-?-?-?-?-?- Negative 151 26 -?-?--?-?-?-?-?-?-?-?-?-?- -No Vb, LOF. G ood FM. Has not scheduled with MFM yet concerning echogenic focus of infant's stomach. Phone number given to call. 28 wk labs, tdap and larc 08/29/21 -?-?-?-?-?-?-?-?-?-?-?-?- 30w 0d 121 lb 6 oz (+17 lb 6 oz) 124/60 Negative -?-?-?-?-?-?-?-?-?-?-?-?- Negative 140 30 -?-?-?-?-?-?-?-?-?-?-?-?- JV- pt's neurolo gist increased keppra to three times a day. start NSTs at 32 weeks twice weekly. 09/12/21 -?-?-?-?-?-?-?-?-?-?-?-?- 32w 0d 122 lb (+18 lb) 132/75 Negative -?-?-?-?-?-?-?-?-?-?-?-?- Negative 140 32 -?-?-?-?-?-?-?-?-?-?-?-?- SM- no vb lof go od fm no regular ctx 09/26/21 -?-?-?-?-?-?-?-?-?-?-?-?- 34w 0d 124 lb 2 oz (+20 lb 2 oz) 124/80 Negative -?-?-?-?-?-?-?-?-?-?-?-?- Negative 130 -?-?-?-?-?-?-?-?-?-?-?-?- JV- nst reactive today. doing well with current dose of seizure meds 09/29/21 -?-?-?-?-?-?-?-?-?-?-?-?- 34w 3d 122 lb 6 oz (+18 lb 6 oz) 109/68 -?-?-?-?-?-?-?-?-?-?-?-?- 130 -?-?-?-?-?-?-?-?-?-?-?-?- MH-NST only reac tive 10/02/21 -?-?-?-?-?-?-?-?-?-?-?-?- 34w 6d 123/74 -?-?-?-?-?-?-?-?-?-?-?-?- 140 -?-?-?-?-?-?-?-?-?-?-?-?- SM- no vb lof go od fm no regular ctx 10/07/21 -?-?-?-?-?-?-?-?-?-?-?-?- 35w 4d 124 lb (+20 lb) 112/80 Negative -?-?-?-?-?-?-?-?-?-?-?-?- Negative 120 -?-?-?-?-?-?-?-?-?-?-?-?- MH-NST only reac tive 10/10/21 -?-?-?-?-?-?-?-?-?-?-?-?- 36w 0d 123 lb 6 oz (+19 lb 6 oz) 104/68 Negative -?-?-?-?-?-?-?-?-?-?-?-?- Negative 130 -?-?-?-?-?-?-?-?-?-?-?-?- SM- no vb lof go od fm no regular ctx gbs done 10/14/21 -?-?-?-?-?-?-?-?-?-?-?--?- 36w 4d 126 lb 2 oz (+22 lb 2 oz) 120/76 Negative -?-?-?-?-?-?-?-?-?-?-?-?- Negative 140 -?-?-?-?-?-?-?-?-?-?-?-?- -NST only reac tive 10/16/21 -?-?-?-?-?-?-?-?-?-?-?-?- 36w 6d 125 lb 10.616 oz (+21 lb 10.616 oz) 131/72 -?-?-?-?-?-?-?-?-?-?-?-?- -?-?-?-?-?-?-?-?-?-?-?-?- 10/17/21 -?-?-?-?-?-?-?-?-?-?-?-?- 37w 0d 127 lb 6 oz (+23 lb 6 oz) 120/60 Negative -?-?-?-?-?-?-?-?-?-?-?-?- Negative 120 -?-?-?-?-?-?-?-?-?-?-?-?- JV- HARJEET last nig ht at [facility] radiology HARJEET was noted to be 5.3, however, badder was distended. She was given IV fluids and repeat today was 11 cm with largest pocket 6.3 cm. NST today and twice weekly with HARJEET to proceed or follow NST. if HARJEET lower than 5 will plan induction 10/21/21 -?-?-?-?-?-?-?-?-?-?-?-?- 37w 4d 129 lb 6 oz (+25 lb 6 oz) 110/80 -?-?-?-?-?-?-?-?-?-?-?-?- -?-?-?-?-?-?-?-?-?--?-?-?- 10/21/21 -?-?-?-?-?-?-?-?-?-?-?-?- 37w 4d 128 lb (+24 lb) 106/71 119/69 -?-?-?-?-?-?-?-?-?-?-?-?- -?-?-?-?-?-?-?-?-?-?-?-?- NST FHR Rate Baby A Baseline: 150 Variability:: Moderate Accelerations:: 15 x 15 Decelerations:: None NST Reactive:: Yes FHR Category:: Category I ROS Constitutional Constitutional: Denies change in weight, fatigue, fever(s), headache(s), poor appetite or weakness Eyes Eyes: Denies blurry vision, change in vision, seeing flashes or spots in vision ENT HEENT: Denies dizziness, headache(s), loss taste/smell or sore throat Cardiovascular Cardiovascular: Denies chest pain, dizziness, dyspnea, irregular heart rhythm, leg edema, palpitations, rapid heart rate or vomiting Respiratory/Chest Respiratory/Chest: Denies chest tightness, cough, dyspnea or breast pain Gastrointestinal Gastrointestinal: Denies abdominal pain, anorexia, constipation, cramping, diarrhea, hemorrhoids, vomiting or weight changes Genitourinary Genitourinary: Denies dysuria, flank pain, genital lesions, genital pain, urinary frequency or urinary urgency Musculoskeletal Musculoskeletal: Denies back pain, difficulty walking, joint pain, limited range of motion, muscle cramps or numbness Integumentary Integumentary: Denies lesions or unusual bruising Neurologic Neurologic: Denies abnormal movements, abnormal speech, dizziness, numbness, seizure-like activity or syncope Psychiatric Psychiatric: Denies anxiety, behavioral changes, change in appetite, change in libido, cognitive impairment, confusion, depression, difficulty concentrating, hallucinations or suicidal thoughts Endocrine Endocrinology: Denies excessive sweating, polydipsia or polyuria Hematologic/Lymphatic Hematologic/Lymphatic: Denies easy bleeding, easy bruising or lymphadenopathy Allergic/Immunologic Allergic/Immunologic: Denies itchy eyes, lip swelling, seasonal rhinorrhea, rhinitis, throat swelling, tongue swelling, eczemia, wheezing or asthma Vital Signs Vital Signs Vital Signs: 10/21/21 18:08 10/21/21 19:18 10/21/21 19:34 Temperature 98.1 F Temperature Source Temporal Pulse Rate 69 87 Blood Pressure 106/71 119/69 BP Systolic 106 119 BP Diastolic 71 69 Weight Weight: 128 lb Body Mass Index (BMI) 24.1 Physical Exam Const alert, oriented x3, no apparent distress and healthy appearing General Appearance: cooperative; Negative for anxious HEENT normocephalic Face and Sinus: normal facial exam Eyes EOMs intact bilaterally and no scleral icterus General Eye: normal appearance of both eyes Neck full ROM and supple Lymph Lymphatic: no lymphadenopathy noted Chest Chest: abnormal inspection of the chest Resp normal respiratory effort Effort and Inspection: able to speak in complete sentences Cardio regular rate GI soft to palpation and non-tender Inspection: gravid Palpation: soft; Negative for tender external exam normal Amniotic Fluid: other cervix is cl/th/high/posterior and firm Back/Spine no CVA tenderness Extremity normal to inspection, full ROM and no clubbing, cyanosis or edema General Extremity: Negative for calf tenderness or edema Skin Lesions: no lesions Rashes: no rashes Psych mental status grossly normal Labs Labs Labs: Blood Type A POSITIVE Antibody Screen NEGATIVE Hct 35.4 % (37-47) L Hgb 11.3 g/dL (12.0-15.0) L Obstetrics US Syphilis Total Ab Non-reactive Rubella IgG Antibody Reactive (Nonreactive) Hep Bs Antigen Non-Reactive (Nonreactive) Chlamydia DNA ([place]) Negative (Negative) Neisseria gonorrhoeae DNA ([place]) Negative (Negative) HIV 1&2 Antibody Non-Reactive (Nonreactive) Glucose 1 Hr 50 gm 95 mg/dL (70-140) Miscellaneous Test Assessment & Plan (1) : QUALIFIERS: Weeks of gestation: 37 weeks Qualified Code(s): Z3A.37 - 37 weeks gestation of COMMENT: NIPT low risk, carrier testing neg; NEG AFP, GBS negative (2) Supervision of high risk , antepartum: COMMENT: PRR DIOGENES: 11/07/21 rios Caballero Spouse: Dori (Dori age 12) (3) Dermoid cyst: COMMENT: left ovarian-5cm. repeat us 6 weeks after delivery to consider removal (4) COVID-19 affecting in second trimester: COMMENT: start aspirin and growth US at 32 and 36 weeks. Normal growth, baby on small side. (5) HARJEET (amniotic fluid index) borderline low: COMMENT: was 5.3 on 10/16, however bladder was full. pt was given fluids on L&D and NST reactive. rpt HARJEET next day 11 Continue monitoring HARJEET twice a week (6) Abnormal ultrasound: COMMENT: echogenic foci of stomach seen initially, MFM consult declined due to insurance coverage. nipt low risk, fu us normal. (7) Epilepsy: QUALIFIERS: Epilepsy type: unspecified Intractability: not intractable Status epilepticus: without status epilepticus Qualified Code(s): G40.909 - Epilepsy, unspecified, not intractable, without status epilepticus COMMENT: extra folic acid. dx 2012- Dr. Lorenzo Lucio currently on Keppra 750mg ER TID. -start twice weekly nst's 32 weeks. Pt states last seizure was 07/17/21 PLAN: Patient presents IOL, plan management for with cytotec tonight and reassess after 1-3 doses as needed. Pain management: plans epidural. GBS negative. Management of any complications: none I have reviewed the [facility] and made any clinically relevant updates.
[2021-10-21] MEDS: LEVETIRACETAM 750 MG 2250 MG PO (22:35)
[2021-10-21 22:36] VITALS: BP 112/74; PULSE 88; TEMP 36.6
[2021-10-21 22:38] VITALS: O2SAT 99
[2021-10-22] VITALS (29 sets, daily range): BP systolic 105–138; BP diastolic 55–72; PULSE 59–93; TEMP 36.2–36.8; O2SAT 98–100
[2021-10-22] MEDS: miSOPROStol 25 MCG TABLET PO ×3 (03:12→11:51)
[2021-10-22] MEDS: 0.9% Saline Lock 10 ML Syringe IV (16:39)
[2021-10-22] MEDS: 0.9% Normal Saline Single 100 ML IV.SOLN. INTRA-UTER (17:20)
[2021-10-22] MEDS: Ondansetron 4 MG/2 ML Vial IV (17:47)
[2021-10-22] MEDS: Lactated Ringers 1,000 ML 50 ML IV (18:03)
[2021-10-22] MEDS: Lactated Ringers 500 ML 999 ML IV (18:09)
[2021-10-22] MEDS: fentaNYL-bupivacaine (epidural) 100 ML BAG EPIDURAL ×2 (18:35→23:09)
[2021-10-22] MEDS: Oxytocin 30 units/NS 500 ml 30 UNITS/500 ML IV.SOLN IV (20:41)
[2021-10-22] MEDS: LEVETIRACETAM 750 MG 2250 MG PO (22:00)
[2021-10-23] VITALS (29 sets, daily range): BP systolic 109–133; BP diastolic 58–83; PULSE 58–105; RESP 15–16; TEMP 36.1–36.9; O2SAT 96–100
[2021-10-23] MEDS: Lactated Ringers 1,000 ML 200 ML IV ×2 (01:12→06:17)
--- NOTE | 2021-10-23 03:30 | PCM.PN.OB ---
Subjective Subjective arom clear fluid 5/80/0 pit per protocol, cat I tracing reassuring epi comfortable Objective Data Objective Data Vital Signs: Vital Signs Temp Pulse BP Pulse Ox 98.3 F 82 112/70 99 10/23/21 02:53 10/23/21 02:54 10/23/21 02:54 10/23/21 02:54 Weight: 128 lb Body Mass Index (BMI) 24.1 Intake & Output: Intake and Output for Last 24 Hours 10/21/21 10/22/21 10/23/21 23:59 23:59 23:59 Intake Total 1080.23 / 1080.23 726.59 / 726.59 Output Total 400 / 400 Balance 680.23 / 680.23 726.59 / 726.59 Lab / Micro Data Result Diagrams: 10/21/21 17:50 Micro: Microbiology 10/21/21 18:00 Nasal Secretion SARS-CoV-2 Antigen (Rapid) - Final
[2021-10-23] MEDS: fentaNYL-bupivacaine (epidural) 100 ML BAG EPIDURAL ×2 (03:56→09:02)
[2021-10-23] MEDS: Oxytocin 30 units/NS 500 ml 30 UNITS/500 ML IV.SOLN 334 UNITS IV (10:26)
[2021-10-23] MEDS: Methylergonovine 0.2 MG/ML Ampul IM (10:29)
[2021-10-23] MEDS: 0.9% Saline Lock 10 ML Syringe IV (13:29)
--- NOTE | 2021-10-23 13:59 | OP.PCM_ITS ---
Assessment & Plan (1) Epilepsy: QUALIFIERS: Epilepsy type: unspecified Intractability: not intractable Status epilepticus: without status epilepticus Qualified Code(s): G40.909 - Epilepsy, unspecified, not intractable, without status epilepticus COMMENT: extra folic acid. dx 2013- Dr. Lorenzo Lucio currently on Keppra 750mg ER TID. -start twice weekly nst's 32 weeks. Pt states last seizure was 07/17/21 (2) HARJEET (amniotic fluid index) borderline low: COMMENT: was 5.3 on 10/16, however bladder was full. pt was given fluids on L&D and NST reactive. rpt HARJEET next day 11 Continue monitoring HARJEET twice a week (3) Abnormal ultrasound: COMMENT: echogenic foci of stomach seen initially, MFM consult declined due to insurance coverage. nipt low risk, fu us normal. (4) COVID-19 affecting in second trimester: COMMENT: start aspirin and growth US at 32 and 36 weeks. Normal growth, baby on small side. (5) Dermoid cyst: COMMENT: left ovarian-5cm. repeat us 6 weeks after delivery to consider removal (6) Supervision of high risk , antepartum: COMMENT: PRR DIOGENES: 11/07/21 rios Caballero Spouse: Dori (Dori age 12) (7) : QUALIFIERS: Weeks of gestation: 37 weeks Qualified Code(s): Z3A.37 - 37 weeks gestation of COMMENT: NIPT low risk, carrier testing neg; NEG AFP, GBS negative (8) Vaginal delivery: COMMENT: IOL 37 SM rios caballero Maternal Data Information DIOGENES Calculator Estimated Delivery Date Method Current WG Current Estimate 11/07/21 LMP (Certain) 37w 6d Vaginal Delivery Operative Information Date of Procedure: 10/23/21 Pre-Operative Diagnosis: IOL oligo Post-Operative Diagnosis: same Surgery / Procedure Performed: Spontaneous Vaginal Delivery Type of Anesthesia: Epidural Special Medications: floseal, methergine Estimated Blood Loss: 500 Fluids Replaced: crystalloid Findings Description of Procedure: Patient began pushing and delivered the head in the RAUL presentation. The head was delivered atraumatically. The anterior and posterior shoulders delivered without complication followed by the rest of the infant and the infant was placed on the maternal abdomen. Delayed cord clamping was employed for approximately 60 seconds. Cord was clamped and cut and gentle traction was applied to the cord and the placenta delivered spontaneously immediately following it was noted to be intact with three-vessel cord. The perineum and vagina were inspected and noted to have second degree laceration repaired in the usual fashion, but then the tissue was friable and therefore floseal applied for hemostasis . EBL was 500cc. mild atony noted methergine given. Patient and infant tolerated delivery well. Presentation: RAUL Amniotic Membrane Rupture Type: Artificial Amniotic Fluid Description: Clear Placental Delivery Description: Spontaneous Placenta Disposition: [facility] Cord Vessel Description: 3 Vessels Cord Entanglement: None Delayed Cord Clamping: Yes Post Vaginal Delivery Medications Given After Delivery: IV Pitocin Episiotomy Description: None Laceration: Perineal Extension/lac and 2nd degree Complication Complications: None Procedures Urinary/Genital [id number]: [id number] [facility]inal [facility]
--- NOTE | 2021-10-23 14:03 | PCM.DC ---
Discharge Instructions Diet Discharge Diet: No restrictions Activity Discharge Activity: Return to Normal Activity, May Not Drive (while taking narcotic pain medications.) and May Shower May resume sexual activity in: 4-6 weeks Dressing / Incision Call your doctor if your incision/area has: Continuous Slow Oozing, Sudden Increased Bleeding, Increased Pain/ Swelling, Increased Redness and Foul Smelling Discharge Follow Up Care Please Follow Up With: Karol Lacy MD When: Call [phone] to make an appointment with your doctor in 6 weeks. If you had elevated blood pressure or 4th degree laceration, you will need to be seen in 2 weeks. Test Results: Test results from this visit will be discussed in further detail at your follow-up appointment, if applicable. Discharge Plan Admission Admit Date/Time: 10/21/21 17:30 Attending Provider: Karol Lacy Primary Care Provider: Lupe Morrow Discharge Orders/Prescriptions Prescriptions: No Action PNV-DHA 27 mg iron-1 mg -300 mg capsule 1 cap PO DAILY RF: 0 aspirin 81 mg tablet,delayed release (DR/EC) 81 mg PO DAILY RF: 0 levetiracetam 750 mg tablet extended release 24 hr 2,250 mg PO QHS RF: 0
[2021-10-23] MEDS: Ibuprofen 600 MG Tablet PO (19:14)
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
[2021-10-24] MEDS: LEVETIRACETAM 750 MG 2250 MG PO ×2 (00:07→22:31)
[2021-10-24 00:20] VITALS: BP 117/76; PULSE 89; RESP 16; TEMP 36.1; O2SAT 96
[2021-10-24 04:39] VITALS: BP 104/51; PULSE 84; RESP 16; TEMP 36.4; O2SAT 97
[2021-10-24] MEDS: Ibuprofen 600 MG Tablet PO ×2 (04:59→20:04)
[2021-10-24] MEDS: Benzocaine/Lanolin/Aloe Vera 1 SPRAY EACH TOPICAL (05:03)
[2021-10-24 08:46] VITALS: BP 110/73; PULSE 88; RESP 16; TEMP 36.2
[2021-10-24] MEDS: Acetaminophen 500 MG Tablet 1000 MG PO (09:03)
--- NOTE | 2021-10-24 10:59 | PCM.PN.OB ---
Subjective Subjective Patient doing well without complaints. Tolerating PO. Ambulating and voiding without difficulty. feeding well. Denies chest pain, shortness of breath, calf pain/swelling, fevers, chills, lightheadedness. Objective Data Objective Data Vital Signs: Vital Signs Temp Pulse Resp BP Pulse Ox 97.2 F L 88 16 110/73 97 10/24/21 08:46 10/24/21 08:46 10/24/21 08:46 10/24/21 08:46 10/24/21 04:39 Oxygen Delivery Method Room Air Weight: 128 lb Body Mass Index (BMI) 24.1 Intake & Output: Intake and Output for Last 24 Hours 10/22/21 10/23/21 10/24/21 23:59 23:59 23:59 Intake Total 1080.23 / 1080.23 4356.92 / 4356.92 Output Total 400 / 400 4000 / 4000 500 / 500 Balance 680.23 / 680.23 356.92 / 356.92 -500 / -500 Lab / Micro Data Result Diagrams: 10/21/21 17:50 Micro: Microbiology 10/21/21 18:00 Nasal Secretion SARS-CoV-2 Antigen (Rapid) - Final ROS Constitutional Constitutional: Reports systems reviewed and no addt'l complaints, except as documented Cardiovascular Cardiovascular: Reports systems reviewed and no addt'l complaints, except as documented Respiratory/Chest Respiratory/Chest: Reports systems reviewed and no addt'l complaints, except as documented Gastrointestinal Gastrointestinal: Reports systems reviewed and no addt'l complaints, except as documented Physical Exam Const alert, oriented x3 and no apparent distress HEENT Head and Scalp: atraumatic Resp normal respiratory effort GI soft to palpation and non-tender Bimanual Exam - Vag & Uterus: uterus non-tender Uterus Palpation: uterus fundus firm (below Umbilicus) Assessment & Plan (1) Vaginal delivery: COMMENT: IOL 37 SM boy verenice PLAN: s/p PPD # 1 1. routine post delivery care 2. breast feeding- support given 3. rh positive 4. rubella immune
[2021-10-24 12:13] VITALS: BP 108/57; PULSE 85; RESP 16; TEMP 36.6
[2021-10-24 16:18] VITALS: BP 111/60; PULSE 84; RESP 16; TEMP 36.4
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
[2021-10-24 19:49] VITALS: BP 102/66; PULSE 80; RESP 16; TEMP 36.6
[2021-10-25 01:38] VITALS: BP 120/54; PULSE 103; RESP 16; TEMP 36.6; O2SAT 98
--- NOTE | 2021-10-25 04:22 | PCM.PN.OB ---
Subjective Subjective Patient doing well without complaints. Tolerating PO. Ambulating and voiding without difficulty. feeding well. Denies chest pain, shortness of breath, calf pain/swelling, fevers, chills, lightheadedness. Objective Data Objective Data Vital Signs: Vital Signs Temp Pulse Resp BP Pulse Ox 97.8 F 103 H 16 120/54 L 98 10/25/21 01:38 10/25/21 01:38 10/25/21 01:38 10/25/21 01:38 10/25/21 01:38 Oxygen Delivery Method Room Air Weight: 128 lb Body Mass Index (BMI) 24.1 Intake & Output: Intake and Output for Last 24 Hours 10/23/21 10/24/21 10/25/21 23:59 23:59 23:59 Intake Total 4356.92 / 4356.92 Output Total 4000 / 4000 500 / 500 Balance 356.92 / 356.92 -500 / -500 Lab / Micro Data Result Diagrams: 10/21/21 17:50 Micro: Microbiology 10/21/21 18:00 Nasal Secretion SARS-CoV-2 Antigen (Rapid) - Final ROS Constitutional Constitutional: Reports systems reviewed and no addt'l complaints, except as documented Cardiovascular Cardiovascular: Reports systems reviewed and no addt'l complaints, except as documented Respiratory/Chest Respiratory/Chest: Reports systems reviewed and no addt'l complaints, except as documented Gastrointestinal Gastrointestinal: Reports systems reviewed and no addt'l complaints, except as documented Physical Exam Const alert, oriented x3 and no apparent distress HEENT Head and Scalp: atraumatic Resp normal respiratory effort GI soft to palpation and non-tender Bimanual Exam - Vag & Uterus: uterus non-tender Uterus Palpation: uterus fundus firm (below Umbilicus) Assessment & Plan (1) Dermoid cyst: COMMENT: left ovarian-5cm. repeat us 6 weeks after delivery to consider removal (2) Vaginal delivery: COMMENT: IOL 37 SM boy verenice (3) Epilepsy: QUALIFIERS: Epilepsy type: unspecified Intractability: not intractable Status epilepticus: without status epilepticus Qualified Code(s): G40.909 - Epilepsy, unspecified, not intractable, without status epilepticus COMMENT: extra folic acid. dx 2013- Dr. Lorenzo Lucio currently on Keppra 750mg ER TID. -start twice weekly nst's 32 weeks. Pt states last seizure was 07/17/21 PLAN: s/p PPD # 2 1. routine post delivery care 2. breast feeding- support given 3. rh positive 4. rubella immune
[2021-10-25 08:39] VITALS: BP 116/81; PULSE 87; RESP 16; TEMP 36.4; O2SAT 97
[2021-10-25] MEDS: Ibuprofen 600 MG Tablet PO (08:53)
[2021-10-25] MEDS: Acetaminophen 500 MG Tablet 1000 MG PO (11:33)
[2021-10-25 13:51] VITALS: BP 117/84; PULSE 102; RESP 16; TEMP 36.1; O2SAT 100
[2021-10-27 12:20] LABS: KEPPRA (LEVETIRACETAM) 11.5 ug/mL (10.0-40.0)
--- NOTE | 2021-10-28 13:10 | CASEMGMT ---
Social Work Labor and Delivery unit Help me grow referral submitted through the [facility] assisted care web-based referral system. Records reviewed and no additional concerns noted in record regarding parent interactions. No other services requested or indicated. -CONY Leo, HOUSEKEEPER/LAUNDRY ASSISTANT. *This note was generated with H?REL dictation software. It may contain incorrect words, spelling, and punctuation that were not noted in review of the chart prior to signing*
== END 2021-10-25 15:35 | disposition home or self-care (01) | DRG 806 ==
PROVIDERS: Obstetrics & Gynecology; Admitting Provider Obstetrics & Gynecology; PCP Internal Medicine; Visit Provider Obstetrics & Gynecology
DX: O41.03X0 Oligohydramnios, third trimester, not applicable or unspecified (principal); Z37.0 Single live birth; O99.354 Diseases of the nervous system complicating childbirth; G40.909 Epilepsy, unspecified, not intractable, without status epilepticus; D27.1 Benign neoplasm of left ovary; O34.83 Maternal care for other abnormalities of pelvic organs, third trimester; O99.892 Other specified diseases and conditions complicating childbirth; O35.8XX0 Maternal care for other (suspected) fetal abnormality and damage, not applicable or unspecified; O70.1 Second degree perineal laceration during delivery; Z3A.37 37 weeks gestation of pregnancy; Z79.82 Long term (current) use of aspirin; Z79.899 Other long term (current) drug therapy; Z86.16 Personal history of COVID-19; Z28.310 Unvaccinated for COVID-19
CPT/HCPCS: 59025; 59050; 80177; 85025; 86850; 86900; 86901; 87426; 99218; J7120; A4216; G0378; J2405

== ENCOUNTER → 2021-12-11 | Outpatient (CLI) | payer OTHER, MEDICAID, SELFPAY ==
--- NOTE | 2021-12-11 09:32 | US_ITS ---
STUDY: ULTRASOUND BREAST - LEFT REASON FOR EXAM: Female, 26 years old. Painful and tender left breast lump. TECHNIQUE: Axial and longitudinal images of the LEFT breast were performed with a high resolution ultrasound transducer. # OF IMAGES: 42 COMPARISON: None. FINDINGS: LEFT Breast: The palpable abnormality corresponds to dense fibroglandular tissue. No solid or cystic mass lesion is seen. US/Breast Limited Unilateral IMPRESSION: No sonographic abnormality is seen. ASSESSMENT CATEGORY: BIRADS Category 1: Negative. A letter regarding these results will be sent to the patient by the facility within 30 days. Electronically Signed: Jakub Mcmahon MD at 10:31 EDT ,
== END | disposition home or self-care (01) ==
LOC: OPBI 09:28
PROVIDERS: PCP Internal Medicine; Visit Provider Obstetrics & Gynecology
DX: N63.20 Unspecified lump in the left breast, unspecified quadrant (principal)
CPT/HCPCS: 76642

== ENCOUNTER → 2022-01-05 | Outpatient (CLI) | payer OTHER, MEDICAID, SELFPAY ==
--- NOTE | 2022-01-05 15:40 | US_ITS ---
STUDY: ULTRASOUND OF THE FEMALE PELVIS - COMPLETE REASON FOR EXAM: Female, 26 years old. IUD placement. LMP: None since childbirth 2 months ago. TECHNIQUE: Transabdominal and Transvaginal TECHNICAL QUALITY: Adequate. COMPARISON: None. FINDINGS: The uterus is anteverted and is in a midline position. The uterus measures 8.5 x 5.7 x 3.6 cm. Normal uterine cervix. The endometrium measures 5.3 mm in thickness, and is hyperechoic. There is no demonstrated endometrial mass. There is no demonstrated myometrial mass. I.U.D. - The patient does not have an I.U.D. IUD is in satisfactory position. The right ovary is visualized. The right ovary measures 3.6 x 2.7 x 2.4 cm. There is no right ovarian cyst or ovarian mass. There is no visualized right adnexal mass or complex lesion. There is normal arterial and normal venous vascularity. The left ovary is visualized. The left ovary measures 3.7 x 1.5 x 2.1 cm. There is no left ovarian cyst or ovarian mass. There is no visualized left adnexal mass or complex lesion. There is normal arterial and normal venous vascularity. There is no fluid in the cul-de-sac. The pre void volume of the bladder was 179 ml. The bladder is grossly normal. Polycystic ovary disease: No. US/Pelvic (Non ) IMPRESSION: 1. IUD in satisfactory position. 2. Otherwise normal pelvic ultrasound. Electronically Signed: Scar Granados DO at 22:57 EDT ,
--- NOTE | 2022-01-05 15:40 | US_ITS ---
STUDY: ULTRASOUND OF THE FEMALE PELVIS - COMPLETE REASON FOR EXAM: Female, 26 years old. IUD placement. LMP: None since childbirth 2 months ago. TECHNIQUE: Transabdominal and Transvaginal TECHNICAL QUALITY: Adequate. COMPARISON: None. FINDINGS: The uterus is anteverted and is in a midline position. The uterus measures 8.5 x 5.7 x 3.6 cm. Normal uterine cervix. The endometrium measures 5.3 mm in thickness, and is hyperechoic. There is no demonstrated endometrial mass. There is no demonstrated myometrial mass. I.U.D. - The patient does not have an I.U.D. IUD is in satisfactory position. The right ovary is visualized. The right ovary measures 3.6 x 2.7 x 2.4 cm. There is no right ovarian cyst or ovarian mass. There is no visualized right adnexal mass or complex lesion. There is normal arterial and normal venous vascularity. The left ovary is visualized. The left ovary measures 3.7 x 1.5 x 2.1 cm. There is no left ovarian cyst or ovarian mass. There is no visualized left adnexal mass or complex lesion. There is normal arterial and normal venous vascularity. There is no fluid in the cul-de-sac. The pre void volume of the bladder was 179 ml. The bladder is grossly normal. Polycystic ovary disease: No. US/Transvaginal Non- IMPRESSION: 1. IUD in satisfactory position. 2. Otherwise normal pelvic ultrasound. Electronically Signed: Scar Granados DO at 22:57 EDT ,
== END | disposition home or self-care (01) ==
LOC: US 15:38
PROVIDERS: PCP Internal Medicine; Referring Provider Obstetrics & Gynecology; Visit Provider Obstetrics & Gynecology
DX: R10.2 Pelvic and perineal pain (principal); Z30.431 Encounter for routine checking of intrauterine contraceptive device
CPT/HCPCS: 76830; 76856

== ENCOUNTER → 2022-01-05 | Outpatient (CLI) | payer OTHER, MEDICAID, SELFPAY ==
[2022-01-10 21:19] LABS: KEPPRA (LEVETIRACETAM) 36.1 ug/mL (10.0-40.0)
== END | disposition home or self-care (01) ==
LOC: LAB 16:18
PROVIDERS: PCP Internal Medicine; Visit Provider Physician Assistant
DX: G40.009 Localization-related (focal) (partial) idiopathic epilepsy and epileptic syndromes with seizures of localized onset, not intractable, without status epilepticus (principal)
CPT/HCPCS: 36415; 80177

== ENCOUNTER → 2022-01-09 | Outpatient (CLI) | payer OTHER, MEDICAID, SELFPAY ==
--- NOTE | 2022-01-09 14:40 | BRBX_PTH ---
PATIENT: JASMEET PATEL LOC: [facility] U#:[id number] AGE/SX: 26/F ROOM: RE01/09/[address]: Dr. Jenny Wasserman MD : 1995 BED: DIS: 01/09/2022 SPEC #: [id number] RECD: 01/09/22 15:50 STATUS: ROSA KIRAN #: [id number] OANH: 01/09/22 14:[address]: Jenny Wasserman DEPT: SURGICAL PATHOLOGY RECD BY: Nalini Wylie ENTERED: 01/12/22 07:52 SP TYPE: BREAST BX OTHR DR: Dr. Lupe Morrow MD Tissues: Left breast, NOS Procedures: Surgery Specimen Level IV HEADER OPERATION: Left breast biopsy PRE-OP DIAGNOSIS: Left breast mass, possible lipoma TISSUE SUBMITTED: Left breast tissue MICROSCOPIC DIAGNOSIS Left breast, core biopsy: No pathologic change. See comment. AM:jalyn 01/13/2022 COMMENT The specimen shows focal duct ectasia and minimal chronic inflammation. Adipose does not comprise a significant portion of the biopsy. There is no evidence of malignancy. Clinical correlation is suggested. MICROSCOPIC DESCRIPTION Slides are reviewed. GROSS DESCRIPTION Received in fixative is one container labeled with the patient's name and designated left breast. The specimen consists of three elongated fragments of iniguez tissue. Each fragment measures approximately 1 cm in length and 0.1 cm in diameter. The specimen is totally submitted in one cassette. / AM:jalyn 01/12/2022 TC:5 CPT: 49727
== END | disposition home or self-care (01) ==
LOC: LABSPEC 15:54
PROVIDERS: PCP Internal Medicine; Referring Provider Surgery; Visit Provider Surgery
DX: N63.20 Unspecified lump in the left breast, unspecified quadrant (principal)
CPT/HCPCS: 88305

== ENCOUNTER → 2022-01-20 | Outpatient (CLI) | payer OTHER, MEDICAID, SELFPAY ==
[2022-01-23 21:43] LABS: Chlamydia By Nucleic Acid AMP Negative; Gonococcus By Nucleic Acid AMP Negative
== END | disposition home or self-care (01) ==
LOC: LAB 16:37
PROVIDERS: PCP Internal Medicine; Visit Provider Nurse Practitioner Women's Health
DX: N76.0 Acute vaginitis (principal); Z11.3 Encounter for screening for infections with a predominantly sexual mode of transmission
CPT/HCPCS: 87070; 87205; 87491; 87591

== ENCOUNTER → 2022-01-27 | Outpatient (CLI) | payer OTHER, MEDICAID, SELFPAY ==
--- NOTE | 2022-01-27 16:08 | US_ITS ---
STUDY: ULTRASOUND OF THE FEMALE PELVIS - COMPLETE REASON FOR EXAM: Female, 26 years old. ovarian cyst TECHNIQUE: Endovaginal. Transvaginal US was obtained to better visualized the ovaries. COMPARISON: 01/05/2022 FINDINGS: The uterus is anteverted and is in a midline position. The uterus measures 7.1 x 5.9 cm. Normal uterine cervix. The endometrium measures 3.1 mm in thickness, and is hyperechoic. There is no demonstrated endometrial mass. There is no demonstrated myometrial mass. I.U.D. - The patient does have an I.U.D. The right ovary is visualized. The right ovary measures 3.2 cm. There is no right ovarian cyst or ovarian mass. There is no visualized right adnexal mass or complex lesion. There is normal arterial and normal venous vascularity. The left ovary is visualized. The left ovary measures 3.6 cm. There is no left ovarian cyst or ovarian mass. There is no visualized left adnexal mass or complex lesion. There is normal arterial and normal venous vascularity. There is no fluid in the cul-de-sac. Urinary bladder volume is 90 cc. US/Pelvic (Non ) IMPRESSION: Normal female pelvis. Electronically Signed: Ernesto Rodrigues MD at 20:13 EDT ,
--- NOTE | 2022-01-27 16:08 | US_ITS ---
STUDY: ULTRASOUND OF THE FEMALE PELVIS - COMPLETE REASON FOR EXAM: Female, 26 years old. ovarian cyst TECHNIQUE: Endovaginal. Transvaginal US was obtained to better visualized the ovaries. COMPARISON: 01/05/2022 FINDINGS: The uterus is anteverted and is in a midline position. The uterus measures 7.1 x 5.9 cm. Normal uterine cervix. The endometrium measures 3.1 mm in thickness, and is hyperechoic. There is no demonstrated endometrial mass. There is no demonstrated myometrial mass. I.U.D. - The patient does have an I.U.D. The right ovary is visualized. The right ovary measures 3.2 cm. There is no right ovarian cyst or ovarian mass. There is no visualized right adnexal mass or complex lesion. There is normal arterial and normal venous vascularity. The left ovary is visualized. The left ovary measures 3.6 cm. There is no left ovarian cyst or ovarian mass. There is no visualized left adnexal mass or complex lesion. There is normal arterial and normal venous vascularity. There is no fluid in the cul-de-sac. Urinary bladder volume is 90 cc. US/Transvaginal Non- IMPRESSION: Normal female pelvis. Electronically Signed: Ernesto Rodrigues MD at 20:13 EDT ,
== END | disposition home or self-care (01) ==
LOC: OPUS 16:07
PROVIDERS: PCP Internal Medicine; Referring Provider Nurse Practitioner Women's Health; Visit Provider Nurse Practitioner Women's Health
DX: D27.9 Benign neoplasm of unspecified ovary (principal)
CPT/HCPCS: 76830; 76856

== ENCOUNTER → 2023-12-21 | Outpatient (CLI) | payer OTHER, SELFPAY ==
[2023-12-27 17:15] LABS: HPV Reflexed? NOT INDICATED
== END | disposition home or self-care (01) ==
LOC: LABSPEC 17:04
PROVIDERS: PCP Internal Medicine; Referring Provider Nurse Practitioner Women's Health; Visit Provider Nurse Practitioner Women's Health
DX: Z12.4 Encounter for screening for malignant neoplasm of cervix (principal)
CPT/HCPCS: 88175; G0145